=== PATIENT | female | born 1965 | race Caucasian/White ===

== ENCOUNTER 2020-01-10 21:19 | Emergency (ER) | payer BC, OTHER ==
--- NOTE | 2020-01-10 23:35 | EDM.PDOC ---
ED HPI GENERAL MEDICAL PROBLEM - General Chief Complaint: Skin Complaint Stated Complaint: rash in buttocks Time Seen by Provider: 01/10/20 22:43 Source of Information: Reports: Patient History Limitations: Reports: No Limitations - History of Present Illness INITIAL COMMENTS - FREE TEXT/NARRATIVE: 54-year-old female the past medical history of asthma presenting with a rash. Reports a 10-day history of an erythematous, tender rash in her gluteal cleft. Denies any fever, chills, nausea, or vomiting. Also reports a small skin tear in the gluteal cleft and is concerned this may be infected. No other complaints. Past medical history: Reviewed, no additional pertinent history. Surgical history: Reviewed in system, no additional pertinent history. Social history: Reviewed in system, no additional pertinent history. Family history: Reviewed in system, no additional pertinent history. PHYSICAL EXAM Vital signs reviewed. Nursing notes reviewed. Constitutional: Awake, alert, non-distressed. Head: Normocephalic, atraumatic. Eyes: EOMI, conjunctiva normal, no discharge, no scleral icterus. Ears, Nose, Throat: External ears and nose normal, moist oral mucosa. Cardiovascular: 2+ radial pulse, capillary refill less than 2 seconds. Pulmonary: normal work of breathing, no accessory muscle use. Abdomen/GI: Soft, nontender, nondistended, no guarding or rigidity, no masses. : Erythematous, symmetric macular area in the gluteal cleft concerning with candidal dermatitis. No evidence of focal induration or fluctuance to suggest an abscess. There is a small approximately 0.8 cm skin tear in the gluteal cleft as well. Low suspicion for cellulitis. Musculoskeletal: No deformities. Integumentary: Appropriate color for ethnicity, warm, dry, no pallor or jaundice, no rash. Neurologic: Alert, answering questions appropriately, normal speech, no facial droop, moving all extremities well. Psychiatric: Appropriate mood and affect, normal thought process. 5 Pain Score (Numeric/FACES): 5 - Related Data Allergies Allergy/AdvReac Type Severity Reaction Status Date / Time latex Allergy Rash Verified 06/03/17 09:09 Sulfa (Sulfonamide Allergy Hives Verified 06/03/17 09:09 Antibiotics) dust/molds/pollen Allergy sneezing/watery Uncoded 06/03/17 09:09 eyes Home Meds: Home Meds Albuterol [Ventolin HFA] 2 puff INH Q4H PRN 05/05/17 [History] Loratadine [Claritin] 10 mg PO DAILY 05/05/17 [History] Melatonin/Pyridoxine HCl (B6) [Melatonin 5 mg Tablet] 5 mg PO BEDTIME 05/05/17 [History] Omeprazole 20 mg PO DAILY PRN 05/05/17 [History] Ranitidine HCl [Ranitidine] 150 mg PO ASDIRECTED PRN 06/03/17 [History] Nystatin [Nystatin Ointment] 15 gm TOP QID 10 Days #1 tube 01/10/20 [Rx] Past Medical History HEENT History: Reports: Other (See Below) Other HEENT History: wears reading glasses Respiratory History: Reports: Asthma, Bronchitis, Recurrent Other Respiratory History: only uses rescue inhaler when she has bronchitis Gastrointestinal History: Reports: GERD Genitourinary History: Reports: None Endocrine/Metabolic History: Reports: Obesity/BMI 30+ Hematologic History: Reports: None Immunologic History: Reports: None Dermatologic History: Reports: Eczema - Past Surgical History Head Surgeries/Procedures: Reports: None GI Surgical History: Reports: Colonoscopy, EGD Social & Family History - Family History Family Medical History: Noncontributory - Tobacco Use Smoking Status *Q: Never Smoker Second Hand Smoke Exposure: No - Caffeine Use Caffeine Use: Reports: Coffee - Recreational Drug Use Recreational Drug Use: No ED ROS GENERAL - Review of Systems Review Of Systems: See Below ED EXAM, SKIN/RASH Exam: See Below Course - Vital Signs Text/Narrative:: Presentation is consistent with candidal dermatitis of the gluteal cleft. Also noted a small skin tear. No evidence of cellulitis, no evidence of an abscess. No indication for oral antibiotics at this point. No systemic signs of illness, low suspicion for sepsis. Stable to discharge home with topical nystatin ointment 4 times daily for 10 days. Recommended patient cover the skin tear with Vaseline, it is very superficial. We will have her follow-up with her primary medical clinic in next 1 to 2 weeks for reevaluation if symptoms do not resolve. Plan: Patient is stable to discharge home with outpatient primary care clinic follow-up. Strict emergency department return precautions were provided, patient indicated understanding. All questions were answered prior to departur e. Discharged in good condition. Last Recorded V/S: Last Vital Signs Temp 36.4 C 01/10/20 22:52 Pulse 80 01/10/20 22:52 Resp 18 01/10/20 22:52 BP 145/68 H 01/10/20 22:52 Pulse Ox 95 01/10/20 22:52 Departure - Departure Time of Disposition: 23:30 Disposition: Home, Self-Care 01 Condition: Good Clinical Impression: Candidal dermatitis, Skin tear - Discharge Information *PRESCRIPTION DRUG MONITORING PROGRAM REVIEWED*: Not Applicable *COPY OF PRESCRIPTION DRUG MONITORING REPORT IN PATIENT LAURI: Not Applicable Referrals: Kezia Crowe NP [Primary Care Provider] - 1 Week (As needed) Additional Instructions: You were seen in the emergency department for a rash. I believe this is caused by a local fungal infection caused by a a fungus called Tracy. It is treated with topical antifungal medication called nystatin. Apply this as directed. It should resolve with the medication. Please follow-up with your primary medical clinic in the next 1 to 2 weeks if symptoms do not resolve or improve. Warning signs to come back to the ER include fever, chills, if you feel that your rash is worsening, or if you have any other new or worsening symptoms. Please return the emergency department immediately if your symptoms worsen or if you feel worse. Thank you for choosing the [facility] emergency department in [place] for your medical needs today. It was a pleasure caring for you. The following information is given to patients seen in the emergency department who are being discharged. This information is to outline your options for follow-up care. We provide all patients seen in our emergency department with a follow-up referral. The need for follow-up, as well as the timing and circumstances, are variable depending upon the specifics of your emergency department visit. If you don't have a primary care physician on staff, we will provide you with a referral. We always advise you to contact your personal physician following an emergency department visit to inform them of the circumstance of the visit and for follow-up with them and/or the need for any referrals to a consulting specialist. The emergency department will also refer you to a specialist when appropriate. This referral assures that you have the opportunity for follow-up care with a specialist. All of these measure are taken in an effort to provide you with optimal care, which includes your follow-up. Under all circumstances we always encourage you to contact your private physician who remains a resource for coordinating your care. When calling for follow-up care, please make the office aware that this follow-up is from your recent emergency room visit. If for any reason you are refused follow-up, please contact the [facility] Emergency Department at and asked to speak to the emergency department charge nurse. If you do not have a primary care physician that is caring for you, you can contact these clinics below to set up an appointment to establish care: [facility] - Primary Care [address] [place] [address] [place] [address] Sepsis Event Note (ED) - Evaluation Sepsis Screening Result: No Definite Risk - Focused Exam Vital Signs: Vital Signs Temp Pulse Resp BP Pulse Ox 01/10/20 22:52 36.4 C 80 18 145/68 H 95
== END 2020-01-10 23:41 | disposition home or self-care (01) ==
LOC: MW.ED 21:19
DX: S31.801A Laceration without foreign body of unspecified buttock, initial encounter (principal); L30.9 Dermatitis, unspecified; B37.9 Candidiasis, unspecified; J45.909 Unspecified asthma, uncomplicated; K21.9 Gastro-esophageal reflux disease without esophagitis; E66.9 Obesity, unspecified; Z68.43 Body mass index [BMI] 50.0-59.9, adult; Z88.2 Allergy status to sulfonamides; Z91.040 Latex allergy status; Z91.048 Other nonmedicinal substance allergy status; Z79.899 Other long term (current) drug therapy; X58.XXXA Exposure to other specified factors, initial encounter
CPT/HCPCS: 99282